=== PATIENT | male | born 1955 | race Hispanic/Latino ===

== ENCOUNTER 2018-11-01 12:23 | Emergency (ER) | payer SELFPAY ==
[2018-11-01] MEDS ORDERED: ACETAMINOPHEN EXTRA STRENGTH 500 MG TABLET ONE (13:18)
== END 2018-11-01 15:43 | disposition home or self-care (01) ==
LOC: EDH 12:23
DX: M79.662 Pain in left lower leg (principal); K40.90 Unilateral inguinal hernia, without obstruction or gangrene, not specified as recurrent; Z90.49 Acquired absence of other specified parts of digestive tract
CPT/HCPCS: 73590; 93971